=== PATIENT | male | born 1960 | race Hispanic/Latino ===

== ENCOUNTER 2022-12-23 18:26 | Emergency (ER) | payer OTHER ==
[~2022-12-23] VITALS: Ht 180.3 cm; Wt 105.2 kg
[2022-12-23] MEDS ORDERED: PROCHLORPERAZINE 10MG/2ML INJ IV ONE (19:30)
[2022-12-23] MEDS ORDERED: CEFTRIAXONE 1G VIAL IVPB ONE (19:30)
[2022-12-23] MEDS ORDERED: 0.9%NACL 1000ML 2,259 ML IV ONE (19:30)
[2022-12-23] MEDS ORDERED: ACETAMINOPHEN 500 MG TABLET PO ONE (19:30)
[2022-12-23] MEDS ORDERED: DiphenhydrAMINE HCL 50 MG/ML VIAL IV ONE (19:30)
[2022-12-23 20:14] LABS: BASOPHILS % (AUTO) 0.2 % (0.0-5.0); HEMATOCRIT 52.1 % (42-54); LYMPHOCYTES % (AUTO) 9.2 % (21.0-51.0); MEAN CORPUSCULAR HEMOGLOBIN 31.8 pg (27.0-33.0); MEAN CORPUSCULAR HGB CONC 34.5 g/dL (32.0-36.0); MONOCYTES % (AUTO) 10.1 % (3.0-13.0); NEUTROPHILS % (AUTO) 80.3 % (40.0-77.0); PLATELET COUNT (AUTO) 142 K/uL (130-400); RED BLOOD CELL COUNT(AUTO) 5.66 MIL/uL (4.50-6.20); RED CELL DISTRIBUTION WIDTH 12.3 % (11.0-15.5)
[2022-12-23 20:15] LABS: BILIRUBIN,URINE NEGATIVE (NEGATIVE); COLOR,URINE YELLOW (YELLOW); GLUCOSE, URINE (UA) NEGATIVE (NEGATIVE); KETONES,URINE NEGATIVE (NEGATIVE); LEUKOCYTE ESTERASE ,URINE NEGATIVE Leu/uL (NEGATIVE); NITRATE,URINE NEGATIVE (NEGATIVE); OCCULT BLOOD,URINE LARGE (NEGATIVE); PROTEIN,URINE 50 mg/dL (NEGATIVE); UROBILINOGEN,URINE 0.2 mg/dL (0.2-1.0)
[2022-12-23 20:17] LABS: APPEARANCE,URINE SLIGHTLY CLOUDY (CLEAR)
[2022-12-23 20:21] LABS: BACTERIA,URINE FEW /HPF (None Seen); MUCUS,URINE RARE LPF (None Seen); SQUAMOUS EPITHELIAL CELL,UR RARE /HPF (0-2)
[2022-12-23 20:35] LABS: CREATININE 1.1 mg/dL (0.5-1.5); POTASSIUM 3.6 mmol/L (3.5-5.1)
[2022-12-23 20:38] LABS: ALBUMIN 3.8 g/dL (3.5-5.0); TOTAL PROTEIN, SERUM 8.2 g/dL (6.0-8.3)
[2022-12-23 21:07] LABS: BAND NEUTROPHILS % (MANUAL) 24 % (0-2); LYMPHOCYTES % (MANUAL) 20 % (22-44); MAN.DIFF COMMENT-IMPRESSION MANUAL DIFFERENTIAL; MONOCYTES % (MANUAL) 9 % (2-9); SEGMENTED NEUTROPHILS % 47 % (40-70)
[2022-12-23 21:09] LABS: PLATELET MORPHOLOGY COMMENT ADEQUATE
[2022-12-23] MEDS ORDERED: ONDA-104 PO (21:59)
[2022-12-23] MEDS ORDERED: ACET-66 PO (21:59)
[2022-12-23] MEDS ORDERED: IBUP-2070 PO (21:59)
[2022-12-23] MEDS ORDERED: SULF1TAB42 PO (21:59)
[2022-12-23 22:04] VITALS: BP 128/74
== END 2022-12-23 22:17 | disposition home or self-care (01) ==
LOC: EDH 18:26
DX: R31.9 Hematuria, unspecified (principal); K52.9 Noninfective gastroenteritis and colitis, unspecified; E78.00 Pure hypercholesterolemia, unspecified; I10 Essential (primary) hypertension; Z20.822 Contact with and (suspected) exposure to COVID-19
CPT/HCPCS: 99285; 96365; 70450; 71045; 96375; 87635; 96366; 82550; 80053; 85025; 87040 ×2; 87880; 87804 ×2; 83605; 81001; 36415; C9803; J1200; J7030; J0780; J0696